=== PATIENT | female | born 1995 | race Caucasian/White ===

== ENCOUNTER 2023-04-18 15:11 | Emergency (ER) | payer OTHER, SELFPAY ==
[2023-04-18 15:23] VITALS: BP 133/80; PULSE 80; RESP 16; TEMP 37.1; O2SAT 100
--- NOTE | 2023-04-18 15:50 | ED.GENADULT ---
HPI - General Adult General Chief complaint: Urogenital-Female Stated complaint: Poss UTI Source: patient Mode of arrival: ambulatory Limitations: no limitations History of Present Illness HPI narrative: Patient presents for evaluation of urinary symptoms. She initially told me that she was experiencing urinary frequency, dysuria and low back pain for last 2 days. She denied any vaginal discharge or bleeding. Nursing staff here informed me that she did report vaginal discharge. I went back to the room and she confirmed this finding. She states that the discharge is foul smelling. She cannot provide me with the caller. She is sexually active with 1 female partner who is also being evaluated here. she engages and oral and vaginal sex with use of sex toys. She denies any fever, chills, abdominal pain, nausea, or vomiting. Related Data Allergies Allergy/AdvReac Type Severity Reaction Status Date / Time No Known Allergies Allergy Verified 04/18/23 15:22 Review of Systems Review of Systems: CONSTITUTIONAL: Denies fever, chills, or sweats. EYES: Denies visual changes, redness, or discharge. ENT: Denies rhinorrhea, congestion, sore throat, or otalgia. CARDIOVASCULAR: Denies chest pain, palpitations, or edema. RESPIRATORY: Denies cough or dyspnea. GASTROINTESTINAL: Denies abdominal pain, nausea, vomiting, or diarrhea. GENITOURINARY: reports foul-smelling vaginal discharge. Reports urinary frequency and dysuria. SKIN: Denies rash or itching. MUSCULOSKELETAL: Reports low back pain. Denies joint pain, or myalgia. NEUROLOGIC: Denies headache, numbness, dizziness, or weakness. PSYCHIATRIC: Denies anxiety or depression. [facility] Past Medical History Medical History (Updated 04/18/23 @ 16:09 by Sandeep Wall, AMARIS, ) No pertinent past medical history Surgical History Surgical History No pertinent past surgical history Family History Family History Mother Family history non-contributory Social History Social History (Updated 04/18/23 @ 16:09 by AMARIS Landin, RITA) Tobacco type: e-cigarettes/vaping Substance use: current Additional living arrangements comments: lives with girlfriend Gender identity (if verbalized by the patient): Female Spiritual care concerns: No Exam Narrative: GENERAL: Well-appearing, well-nourished, and in no acute distress. HEAD: Normocephalic, atraumatic. EYES: PERRLA and EOMI. ENT: Nares clear, no rhinorrhea or epistaxis. Mucous membranes moist. Oropharynx without tonsillar hypertrophy exudate or other lesions. Bilateral TMs pearly mueller nonbulging NECK: Supple. No adenopathy or masses. No carotid bruits or JVD CHEST: Clear to auscultation. No respiratory distress. No wheezes rales or rhonchi HEART: Regular rate and rhythm. No murmur heard. Normal peripheral pulses. ABDOMEN: Soft, nontender, nondistended, normal active bowel sounds. GENITAL: no external genital lesions. No adnexal tenderness. No cervical motion tenderness. There is a moderate amount of thick yellow/green drainage in vaginal vault. EXTREMITIES: Normal range of motion. No edema. SKIN: Warm, dry, no rash. NEURO: No focal deficits. Alert and oriented x3. PSYCH: Normal mood and affect. Course Course Emergency Course: This is a 27-year-old female who presented for evaluation of urinary symptoms. Pelvic exam revealed moderate amount of thick yellow/ green drainage in vaginal vault. Discussed empiric treatment for STIs, to which patient was agreeable. She was given Rocephin while here and will be discharged with doxycycline and Flagyl. Diflucan to be taken at the end of antibiotic course in the event that she develops vaginal candidiasis. Advised on safer sex practices. Follow-up with primary provider. Go to the ER for worsening symptoms. Pt in agreement with plan of [facility]asper
[2023-04-18] MEDS: cefTRIAXone 500 MG VIAL IM (16:19)
[2023-04-18 21:47] LABS: Trichomonas Vag PCR NOT DETECTED (NOT DETECTE)
[2023-04-18 22:09] LABS: Chlamydia trachomatis NOT DETECTED (NOT DETECTE); Neisseria gonorrhoeae PCR NOT DETECTED (NOT DETECTE)
== END 2023-04-18 17:08 | disposition home or self-care (01) ==
PROVIDERS: Emergency Provider Nurse Practitioner
DX: N76.0 Acute vaginitis (principal); F17.290 Nicotine dependence, other tobacco product, uncomplicated
CPT/HCPCS: 81003; 87070; 87086; 87491; 87591; 87661; 96372; 99214; G0463; J0696